=== PATIENT | male | born 1985 | race Caucasian/White ===

== ENCOUNTER 2019-07-07 09:11 | Emergency (ER) | payer OTHER ==
[2019-07-07 09:16] VITALS: BP 139/101; PULSE 81; TEMP 98; BMI 27.1
[2019-07-07] MEDS ORDERED: METHOCARBAMOL 500 MG TABLET PO ONE (09:35)
[2019-07-07] MEDS ORDERED: KETOROLAC TROMETHAMINE 30 MG/1 ML VIAL IM ONE (09:35)
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
[2019-07-07] MEDS ORDERED: KETOROLAC TROMETHAMINE 30 MG/1 ML VIAL ONE (09:46)
[2019-07-07] MEDS ORDERED: METHOCARBAMOL 500 MG TABLET ONE (09:47)
== END 2019-07-07 10:02 | disposition home or self-care (01) ==
LOC: JERFT 09:11
PROC: 3E0233Z Introduction of Anti-inflammatory into Muscle, Percutaneous Approach (ICD-10-PCS; principal; 2019-07-07)
DX: S16.1XXA Strain of muscle, fascia and tendon at neck level, initial encounter (principal); S39.012A Strain of muscle, fascia and tendon of lower back, initial encounter; S83.8X1A Sprain of other specified parts of right knee, initial encounter; V49.49XA Driver injured in collision with other motor vehicles in traffic accident, initial encounter; Y92.414 Local residential or business street as the place of occurrence of the external cause; Y93.89 Activity, other specified; Y99.8 Other external cause status
CPT/HCPCS: 99282-25